=== PATIENT | male | born 1980 | race Asian ===

== ENCOUNTER 2017-02-15 13:12 | Emergency (ER) | payer OTHER ==
[~2017-02-15] VITALS: Ht 190.5 cm; Wt 106.1 kg
[2017-02-15 13:17] VITALS: Ht 190.5 cm; Wt 106.1 kg
[2017-02-15 15:58] VITALS: BP 151/97
== END 2017-02-15 15:59 | disposition home or self-care (01) ==
LOC: ED 13:12
DX: J18.9 Pneumonia, unspecified organism (principal); I10 Essential (primary) hypertension
CPT/HCPCS: J7030; J7512; J7613; J7644

== ENCOUNTER 2017-09-28 11:45 | Inpatient (IN) | payer OTHER ==
[~2017-09-28] VITALS: Ht 188 cm; Wt 111.6 kg
[2017-09-28 12:52] LABS: BASOPHIL % 0.8 % (0-2); PLATELET COUNT 232 x10^3mcL (130-400)
[2017-09-28 13:00] LABS: CALCIUM 8.2 mg/dL (8.5-10.1); CARBON DIOXIDE 30.6 mmol/L (21-32); CHLORIDE SERUM 107 mmol/L (98-107); CREATININE SERUM 1.4 mg/dL (0.7-1.3); GFR1 > 60 mL/min; GLUCOSE SERUM 100 mg/dL (74-106); POTASSIUM SERUM 4.6 mmol/L (3.5-5.1); SODIUM SERUM 143 mmol/L (136-145)
[2017-09-28 13:01] LABS: RED CELL DISTRIBUTION WIDTH 14.8 % (11.5-14.5)
[2017-09-28 13:04] LABS: ALKALINE PHOSPHATASE 70 U/L (46-116); ALT/SGPT 50 U/L (16-63); AST/SGOT 36 U/L (15-37); BILIRUBIN TOTAL 1.3 mg/dL (0.20-1.00); LIPASE 126 IU/L (73-393)
[2017-09-28 13:05] LABS: ALBUMIN 3.1 g/dL (3.4-5.0); TOTAL PROTEIN, SERUM 6.1 g/dL (6.4-8.2)
[2017-09-28 13:21] LABS: UA SPECIFIC GRAVITY 1.025 (1.005-1.035); microscopic required? YES; urine erythrocyte NEGATIVE (NEGATIVE)
[2017-09-28 13:36] LABS: AMPHETAMINE QUAL UR POSITIVE (See below)
[2017-09-28 15:53] VITALS: BP 158/114
[2017-09-28 16:00] VITALS: BP 172/110; Ht 188 cm; Wt 111.6 kg
[2017-09-28 17:11] VITALS: BP 169/130
[2017-09-28 18:29] VITALS: BP 147/116
[2017-09-28 20:05] VITALS: BP 154/119
[2017-09-29] VITALS (9 sets, daily range): BP systolic 126–164; BP diastolic 96–119
[2017-09-29 06:00] LABS: BASOPHIL % 0.5 % (0-2); PLATELET COUNT 195 x10^3mcL (130-400)
[2017-09-29 06:05] LABS: CALCIUM 8.3 mg/dL (8.5-10.1); CARBON DIOXIDE 28.7 mmol/L (21-32); CHLORIDE SERUM 106 mmol/L (98-107); CREATININE SERUM 1.2 mg/dL (0.7-1.3); GFR1 > 60 mL/min; GLUCOSE SERUM 92 mg/dL (74-106); POTASSIUM SERUM 3.3 mmol/L (3.5-5.1); SODIUM SERUM 140 mmol/L (136-145)
[2017-09-29 06:14] LABS: RED CELL DISTRIBUTION WIDTH 14.9 % (11.5-14.5)
[2017-09-30 05:00] VITALS: BP 114/82
[2017-09-30 05:46] LABS: BASOPHIL % 0.4 % (0-2); PLATELET COUNT 212 x10^3mcL (130-400)
[2017-09-30 05:54] LABS: CALCIUM 8.3 mg/dL (8.5-10.1); CHLORIDE SERUM 106 mmol/L (98-107); CREATININE SERUM 1.4 mg/dL (0.7-1.3); GFR1 > 60 mL/min; GLUCOSE SERUM 103 mg/dL (74-106); POTASSIUM SERUM 4.5 mmol/L (3.5-5.1); SODIUM SERUM 139 mmol/L (136-145)
[2017-09-30 08:31] VITALS: BP 125/89
[2017-09-30 12:29] VITALS: BP 143/102
[2017-09-30 16:36] VITALS: BP 138/95
[2017-09-30 21:22] VITALS: BP 131/97
[2017-10-01] VITALS (10 sets, daily range): BP systolic 128–157; BP diastolic 88–114
[2017-10-01 07:30] LABS: BASOPHIL % 0.5 % (0-2); PLATELET COUNT 230 x10^3mcL (130-400); RED CELL DISTRIBUTION WIDTH 14.3 % (11.5-14.5)
[2017-10-01 07:41] LABS: CALCIUM 8.5 mg/dL (8.5-10.1); CARBON DIOXIDE 27.8 mmol/L (21-32); CHLORIDE SERUM 103 mmol/L (98-107); CREATININE SERUM 1.4 mg/dL (0.7-1.3); GFR1 > 60 mL/min; GLUCOSE SERUM 83 mg/dL (74-106); MAGNESIUM 1.8 mg/dL (1.8-2.4); PHOSPHOROUS 4.2 mg/dL (2.5-4.9); POTASSIUM SERUM 4.9 mmol/L (3.5-5.1); SODIUM SERUM 137 mmol/L (136-145)
[2017-10-01] MEDS ORDERED: TOP50 PO (12:27)
[2017-10-01] MEDS ORDERED: ZES10 PO (12:28)
[2017-10-01] MEDS ORDERED: NOR10 PO (12:28)
[2017-10-01] MEDS ORDERED: ALD25 PO (12:28)
[2017-10-01 15:28] LABS: BASOPHIL % 0.5 % (0-2); PLATELET COUNT 237 x10^3mcL (130-400)
[2017-10-01 15:33] LABS: RED CELL DISTRIBUTION WIDTH 14.9 % (11.5-14.5)
== END 2017-10-01 18:55 | disposition home or self-care (01) | DRG 812 ==
LOC: ED 11:45 → DU 14:25
PROVIDERS: Emergency Medicine; Family Medicine
DX: T43.621A Poisoning by amphetamines, accidental (unintentional), initial encounter (principal); J96.01 Acute respiratory failure with hypoxia; N17.0 Acute kidney failure with tubular necrosis; E44.0 Moderate protein-calorie malnutrition; I50.23 Acute on chronic systolic (congestive) heart failure; E66.01 Morbid (severe) obesity due to excess calories; I08.1 Rheumatic disorders of both mitral and tricuspid valves; I11.0 Hypertensive heart disease with heart failure; I42.8 Other cardiomyopathies; K52.9 Noninfective gastroenteritis and colitis, unspecified; Z68.31 Body mass index [BMI] 31.0-31.9, adult; F17.210 Nicotine dependence, cigarettes, uncomplicated; Y92.89 Other specified places as the place of occurrence of the external cause; F15.10 Other stimulant abuse, uncomplicated; I16.0 Hypertensive urgency; K80.20 Calculus of gallbladder without cholecystitis without obstruction; Z79.899 Other long term (current) drug therapy; Z71.6 Tobacco abuse counseling; Z71.51 Drug abuse counseling and surveillance of drug abuser; I45.10 Unspecified right bundle-branch block
CPT/HCPCS: 83880; 94150; 99406; A9500; J1644; J1940; J2060; J2785; J3490; J7030; J7620; Q0092; Q0162